=== PATIENT | male | born 1990 | race African-American/Black ===

== ENCOUNTER 2022-12-30 09:07 | Observation (INO) | payer OTHER ==
[2022-12-28 11:48] LABS: BASOPHILS # (AUTO) 0.1 (0.0-0.1); BASOPHILS % 0.6 % (0.0-1.0); EOSINOPHILS # (AUTO) 0.1 (0.0-0.4); EOSINOPHILS % 0.8 % (0.0-6.0); HEMATOCRIT 55.4 % (38.2-49.6); HEMOGLOBIN 17.9 g/dL (14.0-18.0); LYMPHOCYTES # (AUTO) 2.2 (1.0-3.2); LYMPHOCYTES % 27.4 % (18.0-39.1); MEAN CORPUSCULAR HEMOGLOBIN 28.8 pg (28-32); MEAN CORPUSCULAR HGB CONC 32.3 g/dL (31-35); MEAN CORPUSCULAR VOLUME 89.1 fL (81-99); MONOCYTES # (AUTO) 0.4 (0.2-0.8); MONOCYTES % 5.5 % (4.4-11.3); NEUTROPHILS # (AUTO) 5.2 (2.1-6.9); NEUTROPHILS % 65.2 % (38.7-80.0); PLATELET COUNT 194 x10e3/uL (140-360); RED BLOOD COUNT 6.22 x10e6/uL (4.3-5.7); RED CELL DISTRIBUTION WIDTH 13.3 % (11.7-14.4)
[2022-12-28 12:02] LABS: INR 0.93
[2022-12-28 12:03] LABS: PARTIAL THROMBOPLASTIN TIME 25.9 seconds (23.8-35.5)
[2022-12-28 12:05] LABS: ANION GAP 12.9 mmol/L (8-16); CALCIUM 9.2 mg/dL (8.4-10.2); CREATININE, SERUM 1.38 mg/dL (0.72-1.25); POTASSIUM 3.9 mmol/L (3.5-5.1)
[~2022-12-30] VITALS: Ht 193 cm; Wt 108.4 kg
[~2022-12-30 09:07] MED LIST: ACETAMINOPHEN 1000 MG/100 ML 100 ML IV ONE; HYDROCODON-ACE1 EA12 PO; NIFEDIPINE ER30 M1 PO; SUGAMMADEX SODIUM 200 MG/2 ML VIAL IV ONE; THROMBIN FOR SOLN 5,000 UNIT VIAL ONE; Vancomycin IV 1 GM VIAL ONE
[2022-12-30] MEDS ORDERED: CEFAZOLIN SODIUM 2 GM ONE (09:30)
[2022-12-30] MEDS ORDERED: LACTATED RINGER'S 1,000 ML ONE (09:30)
[2022-12-30] MEDS ORDERED: FENTANYL CITRATE/PF 100MCG/2 ML INJ ONE ×2 (12:53→12:56)
[2022-12-30] MEDS ORDERED: PROPOFOL IV EMULSION 10 MG/ML 20 ML VIAL ONE (13:06)
[2022-12-30] MEDS ORDERED: LIDOCAINE HCL 2% LOCAL INJ 5 ML SDV VIAL INJ ONE (13:06)
[2022-12-30] MEDS ORDERED: DEXAMETHASONE SOD PHOS INJ 4 MG/ML SDV ONE (13:06)
[2022-12-30] MEDS ORDERED: ONDANSETRON HCL INJ 2MG/ML 2ML 2 MG/ML VIAL ONE (13:06)
[2022-12-30] MEDS ORDERED: KETOROLAC TROMETHAMINE 30 MG/ML VIAL ONE (13:06)
[2022-12-30] MEDS ORDERED: SEVOFLURANE INHAL SOLN 250 ML PEN BTL ONE (13:06)
[2022-12-30] MEDS ORDERED: POVIDONE IODINE 0.05% 0.05 % ML PO ONE (13:06)
[2022-12-30] MEDS ORDERED: HYDROCODON-ACE1 EA12 PO (13:19)
[2022-12-30] MEDS ORDERED: PROMETHAZINE HCL (IM) 25 MG/ML VIAL IM PRN (13:30)
[2022-12-30] MEDS ORDERED: ACETAMINOPHEN 325 MG TAB PO PRN (13:30)
[2022-12-30] MEDS ORDERED: CARISOPRODOL 350 MG TAB PO PRN (13:30)
[2022-12-30] MEDS ORDERED: MAGNESIUM/ALUMINUM/SIMETHICONE 30 ML UDC PO PRN (13:30)
[2022-12-30] MEDS ORDERED: ZOLPIDEM TARTRATE 5 MG TAB PO PRN (13:30)
[2022-12-30] MEDS ORDERED: MORPHINE SULFATE 5 MG/ML VIAL IM PRN (13:30)
[2022-12-30] MEDS ORDERED: MEPERIDINE HCL INJ 25 MG/ML VIAL ONE (13:52)
[2022-12-30 14:26] VITALS: BP 139/84; PULSE 82; RESP 16; TEMP 98.5; O2SAT 98
[2022-12-30] MEDS: HYDROMORPHONE 2MG/ML 2 MG/ML ML IV PRN ×2 (15:57→23:39)
[2022-12-30] MEDS: ONDANSETRON HCL INJ 2MG/ML 2ML 2 MG/ML VIAL IV PRN (15:57)
[2022-12-30 17:17] VITALS: BP 139/84; PULSE 82; RESP 16; TEMP 98.4; O2SAT 98
[2022-12-30] MEDS: LACTATED RINGER'S 1,000 ML IV SCH ×2 (18:21→23:39)
[2022-12-30] MEDS: OXYCODONE/ACETAMINOPHEN 5-325 1 EACH TABLET PO PRN (18:24)
[2022-12-30 20:00] VITALS: BP 148/90; PULSE 96; RESP 20; TEMP 98.6; O2SAT 99
[2022-12-31] VITALS: BP 138/77; PULSE 91; RESP 20; TEMP 97.7; O2SAT 96
[2022-12-31 02:06] VITALS: BP 138/77; PULSE 91; RESP 20; TEMP 97.7; O2SAT 96
[2022-12-31 04:00] VITALS: BP 126/81; PULSE 91; RESP 20; TEMP 98; O2SAT 100
[2022-12-31] MEDS: OXYCODONE/ACETAMINOPHEN 5-325 1 EACH TABLET PO PRN (04:08)
[2022-12-31] MEDS: LACTATED RINGER'S 1,000 ML IV SCH (05:01)
[2022-12-31] MEDS: HYDROMORPHONE 2MG/ML 2 MG/ML ML IV PRN (07:53)
[2022-12-31 08:15] VITALS: BP 148/94; PULSE 72; RESP 18; TEMP 98; O2SAT 100
[2022-12-31 08:18] VITALS: BP 148/94; PULSE 72; RESP 18; TEMP 98; O2SAT 100
[2022-12-31] MEDS ORDERED: NIFEDIPINE CR 30 MG TAB PO SCH (09:00)
[2022-12-31] MEDS: ONDANSETRON HCL INJ 2MG/ML 2ML 2 MG/ML VIAL IV PRN (09:16)
== END 2022-12-31 10:20 | disposition home or self-care (01) ==
LOC: OR 09:07 → PACU V 13:19 → MED/SURG 14:25
PROVIDERS: ADMIT Neurological Surgery; ATTEND Neurological Surgery
DX: M51.17 Intervertebral disc disorders with radiculopathy, lumbosacral region (principal); I10 Essential (primary) hypertension; Z01.810 Encounter for preprocedural cardiovascular examination; Z01.812 Encounter for preprocedural laboratory examination; Z01.818 Encounter for other preprocedural examination; Z79.899 Other long term (current) drug therapy
CPT/HCPCS: 36415; 63030; 71046; 72020; 80048; 85025; 85610; 85730; 86850; 86900; 88304; 88311; 93005; G0378 ×2; J0131; J0690; J1100; J1170 ×2; J1885; J2001; J2175; J2405 ×2; J2704; J3010; J3370; J7121